=== PATIENT | male | born 1985 | race American Indian/Alaskan Native ===

== ENCOUNTER 2020-08-22 15:18 | Emergency (ER) | payer OTHER ==
[2020-08-22] MEDS ORDERED: DIPHtheria,PERTUSSIS(ACELL),TETANUS VACCINE/PF 0.5 ML VIAL IM ONE ×2 (16:00→18:53)
--- NOTE | 2020-08-22 16:00 | Emergency Department Report ---
Blank Doc - Documentation Documentation: 34-year-old male that presents with right hand pain and swelling after glass b roke yesterday. Exam: shows some swelling with cellulitis possible. This initial assessment/diagnostic orders/clinical plan/treatment(s) is/are subject to change based on patient's health status, clinical progression and re- assessment by fellow clinical providers in the ED. Further treatment and workup at subsequent clinical providers discretion. Patient/guardians urged not to elope from the ED as their condition may be serious if not clinically assessed and managed. Initial orders include: 1- Patient sent to [facility] for further evaluation and treatment 2- xrays r/o foreign body 3- tetanus
[2020-08-22 16:02] VITALS: BP 136/74
--- NOTE | 2020-08-22 16:26 | XRay Report ---
RIGHT HAND 3 VIEWS INDICATION / CLINICAL INFORMATION: right hand pain and swelling r/o foreign body. COMPARISON: None available. FINDINGS: BONES/JOINT(S): No acute fracture or subluxation. No significant degenerative changes. SOFT TISSUES: No significant abnormality. No appreciable radiopaque foreign body. ADDITIONAL FINDINGS: None. Signer Name: Yusuf Enciso MD Signed: 08/22/2020 4:21 PM Workstation Name: [id number]
--- NOTE | 2020-08-22 18:23 | Emergency Department Report ---
ED Upper Extremity Inj HPI - General Chief Complaint: Extremity Injury, Upper Stated Complaint: RT HAND SWOLLEN Time Seen by Provider: 08/22/20 15:58 Source: family Mode of arrival: Ambulatory Limitations: No Limitations - History of Present Illness Initial Comments: Patient is a 34-year-old male presents emergency room with complaints of a right hand injury that occurred around 8 AM this morning. He states that he was carrying a heavy mirror when he accidentally dropped it on its hand and it broke into pieces. He states that he has associated hand pain and swelling. He denies any numbness or weakness. He is right-hand dominant. He denies ever injuring the past. He is unsure of his last tetanus immunization. No past medical history. No allergies to medications. - Related Data Previous Rx's Medication Instructions Recorded Last Taken Type Acetaminophen/Codeine [Tylenol 1 tab PO Q6H PRN #7 tab 08/22/20 Unknown Rx /Codeine # 3 tab] Naproxen [EC-Naprosyn] 500 mg PO BID PRN #14 tablet. 08/22/20 Unknown Rx cephALEXin [Keflex] 500 mg PO QID 7 Days #28 cap 08/22/20 Unknown Rx Allergies Allergy/AdvReac Type Severity Reaction Status Date / Time No Known Allergies Allergy Unverified 08/22/20 16:01 ED Review of Systems ROS: Stated complaint: RT HAND SWOLLEN Other details as noted in HPI Comment: All other systems reviewed and negative ED Past Medical Hx - Past Medical History Previous Medical History?: No - Surgical History Past Surgical History?: No - Medications Home Medications: Home Medications Medication Instructions Recorded Confirmed Last Taken Type Acetaminophen/Codeine [Tylenol 1 tab PO Q6H PRN #7 tab 08/22/20 Unknown Rx /Codeine # 3 tab] Naproxen [EC-Naprosyn] 500 mg PO BID PRN #14 tablet. 08/22/20 Unknown Rx cephALEXin [Keflex] 500 mg PO QID 7 Days #28 cap 08/22/20 Unknown Rx ED Physical Exam - General Limitations: No Limitations General appearance: alert, in no apparent distress - Head Head exam: Present: atraumatic, normocephalic - Eye Eye exam: Present: normal appearance - ENT ENT exam: Present: mucous membranes moist - Respiratory Respiratory exam: Absent: respiratory distress, accessory muscle use - Extremities Exam Extremities exam: Present: other (edema and ttp to the right hand mostly in the 4th and 5th metacarpal region, no snuffbox ttp, no wrist ttp, multiple very small superficial abrasions, no lacerations, no visualized foreign bodies, neurovascularly intact) - Neurological Exam Neurological exam: Present: alert, oriented X3 - Psychiatric Psychiatric exam: Present: normal affect, normal mood - Skin Skin exam: Present: warm, dry ED Course Vital Signs 08/22/20 16:01 Temperature 99.0 F Pulse Rate 80 Respiratory 18 Rate Blood Pressure 136/74 [Right] O2 Sat by Pulse 99 Oximetry ED Medical Decision Making - Radiology Data Radiology results: report reviewed Fluoro Time In Minutes: RIGHT HAND 3 VIEWS INDICATION / CLINICAL INFORMATION: right hand pain and swelling r/o foreign body. COMPARISON: None available. FINDINGS: BONES/JOINT(S): No acute fracture or subluxation. No significant degenerative changes. SOFT TISSUES: No significant abnormality. No appreciable radiopaque foreign body. ADDITIONAL FINDINGS: None. Signer Name: Yusuf Enciso MD Signed: 08/22/2020 4:21 PM Workstation Name: [id number] Transcribed By: CECILE Dictated By: Yusuf Enciso MD Electronically Authenticated By: Yusuf Enciso MD Signed Date/Time: 08/22/201620 DD/ 20 TD/TT: - Medical Decision Making Patient is a 34-year-old male presents emergency room with complaints of a right hand injury that occurred around 8 AM this morning. He states that he was carrying a heavy mirror when he accidentally dropped it on its hand and it broke into pieces. He states that he has associated hand pain and swelling. He denies any numbness or weakness. He is right-hand dominant. He denies ever injuring the past. He is unsure of his last tetanus immunization. No past medical history. No allergies to medications. VSS. on exam: edema and ttp to the right hand mostly in the 4th and 5th metacarpal region, no snuffbox ttp, no wrist ttp, multiple very small superficial abrasions, no lacerations, no visualized foreign bodies, neurovascularly intact. XR right hand: BONES/JOINT(S): No acute fracture or subluxation. No significant degenerative changes. SOFT TISSUES: No significant abnormality. No appreciable radiopaque foreign body. ADDITIONAL FINDINGS: None. Discussed all results with patient and answered questions. Patient given tetanus immunization. Wound care performed by nurse. Patient placed in Isma wrap and informed not to wear too tightly and do not wear at night while sleeping, remained neurovascularly intact after being placed by nurse. Patient given prescription for naproxen, Tylenol with codeine, Keflex. Advised patient Please take medication as prescribed as needed. Do not drive or operate machinery while taking severe pain medication. Please keep area clean, dry, covered. May wash with antibacterial soap and water twice a day and pat dry. No hot tub, no pool. Follow-up with a primary care doctor. Follow-up with orthopedic doctor. Return to emergency room for any new or worsening symptoms. - Differential Diagnosis Strain, sprain, fracture, dislocation, contusion, abrasion, tendinitis Critical care attestation.: If time is entered above; I have spent that time in minutes in the direct care of this critically ill patient, excluding procedure time. ED Disposition Clinical Impression: Injury of right hand Qualifiers: Encounter type: initial encounter Qualified Code(s): S69.91XA - Unspecified injury of right wrist, hand and finger(s), initial encounter Abrasion of right hand Qualifiers: Encounter type: initial encounter Qualified Code(s): S60.511A - Abrasion of right hand, initial encounter Disposition: TO HOME OR SELFCARE Is pt being admited?: No Does the pt Need Aspirin: No Condition: Stable Instructions: Contusion in Adults (ED), Hand Sprain (ED), Abrasion (ED) Additional Instructions: Please take medication as prescribed as needed. Do not drive or operate machinery while taking severe pain medication. Please keep area clean, dry, covered. May wash with antibacterial soap and water twice a day and pat dry. No hot tub, no pool. Follow-up with a primary care doctor. Follow-up with orthopedic doctor. Return to emergency room for any new or worsening symptoms. Prescriptions: Naproxen [EC-Naprosyn] 500 mg PO BID PRN #14 tablet.dr PRN Reason: Pain, Moderate (4-6) cephALEXin [Keflex] 500 mg PO QID 7 Days #28 cap Acetaminophen/Codeine [Tylenol /Codeine # 3 tab] 1 tab PO Q6H PRN #7 tab PRN Reason: Pain , Severe (7-10) Referrals: KISHA MOTTA MD [Staff Physician] - 2-3 Days [facility] [Provider Group] - 2-3 Days MARYCHUY BUCHANAN MD [Staff Physician] - 2-3 Days [facility] [Provider Group] - 2-3 Days Forms: Work/School Release Form(ED) Time of Disposition: 18:22 Print Language: ALBANIAN
== END 2020-08-22 19:00 | disposition home or self-care (01) ==
LOC: ED 15:18
DX: S60.511A Abrasion of right hand, initial encounter (principal); Z79.899 Other long term (current) drug therapy; X50.0XXA Overexertion from strenuous movement or load, initial encounter; Y93.89 Activity, other specified; Y92.89 Other specified places as the place of occurrence of the external cause; Y99.8 Other external cause status
CPT/HCPCS: 90471; 90715